=== PATIENT | male | born 1945 | race Caucasian/White ===

== ENCOUNTER 2016-09-08 18:11 | Emergency (ER) | payer MEDICARE ==
[2016-09-08 18:46] VITALS: BP 142/92
[2016-09-08] MEDS ORDERED: CYCLOBENZAPRINE HCL 10 MG TABLET PO ONE (19:52)
--- OUTSIDE RECORDS SUMMARY | 2016-09-08 19:53 | XMS REPORT | Summary of Care ---
:1945 Author Organization [facility] Address [address] [place] [address] Care Team Providers Name Role Phone Colette Medeiros Primary Care Physician Encounter Date(s): 08/04/16 - 08/04/16 [facility] Nini Mansfield, [address] [place], [place] [address] Discharge Diagnosis: Spinal stenosis Discharge Disposition: Discharged to Home or Self Care Attending Physician: Low Woods MD Referring Physician: Low Woods MD Vital Signs Most recent to oldest [Reference Range]: 1 Peripheral Pulse Rate [60-100 bpm] 85 bpm (08/04/16 10:39 AM) Blood Pressure [90-130/60-90 mmHg] 144/79mmHg *HI* (08/04/16 10:39 AM) Mean Arterial Pressure, Cuff 101 mmHg (08/04/16 10:39 AM) Most recent to oldest [Reference Range]: 1 Height/Length Measured 170 cm (08/04/16 10:39 AM) Weight Dosing 78.40 kg1 (08/04/16 10:39 AM) Weight Measured 78.4 kg (08/04/16 10:39 AM) BSA Measured 1.9 m2 (08/04/16 10:39 AM) Body Mass Index Measured 27.13 kg/m2 (08/04/16 10:39 AM) 1Result Comment: This result was because the dosing weight was either not entered or it is>30 days old. This result is based off: Weight Measured August 04, 2016 10:39:00 COUNTERINTELLIGENCE/HUMINT SPECIALIST by Abi Phelps CMA Problem List Condition Effective Dates Status Health Status Informant Diabetes(Confirmed) Active Heart attack(Confirmed) 1999 Active Allergies, Adverse Reactions, Alerts No Known Medication Allergies Medications aspirin 81 mg oral tablet 1 tab(s), Oral, BID, 0 Refill(s), Start Date: 06/27/16 14:50:00 COUNTERINTELLIGENCE/HUMINT SPECIALIST Start Date: 06/27/16 Status: Orderedatorvastatin 40 mg oral tablet 1 tab(s), Oral, Daily, 0 Refill(s), Start Date: 06/27/16 14:50:00 COUNTERINTELLIGENCE/HUMINT SPECIALIST Start Date: 06/27/16 Status: Orderedatorvastatin 40 mg oral tablet 1 tab(s), Oral, Daily, # 30 tab(s), 0 Refill(s), Start Date: 06/10/16 13:39:00 COUNTERINTELLIGENCE/HUMINT SPECIALIST Start Date: 06/10/16 Stop Date: 06/10/16 Status: Discontinuedgabapentin 600 mg oral tablet 2 tab(s), Oral, TID, # 270 tab(s), 0 Refill(s), Start Date: 06/27/16 14:50:00 COUNTERINTELLIGENCE/HUMINT SPECIALIST Start Date: 06/27/16 Status: Orderedgabapentin 600 mg oral tablet 1 tab(s), Oral, TID, # 270 tab(s), 0 Refill(s), Start Date: 06/10/16 13:39:00 COUNTERINTELLIGENCE/HUMINT SPECIALIST Start Date: 06/10/16 Stop Date: 06/10/16 Status: Discontinuedhydrocodone-acetaminophen 5mg-325mg oral tablet 1 tab(s), Oral, q6hr, PRN for pain, # 60 tab(s), 0 Refill(s), Start Date: 14:43:00 COUNTERINTELLIGENCE/HUMINT SPECIALIST, Pharmacy: [facility] Start Date: 07/25/16 Status: Orderedibuprofen 200 mg oral tablet 2 tab(s), Oral, q4hr, PRN for fever, # 120 tab(s), 0 Refill(s), Start Date: 13:39:00 COUNTERINTELLIGENCE/HUMINT SPECIALIST Start Date: 06/10/16 Stop Date: 06/10/16 Status: Discontinuedlisinopril 5 mg oral tablet 1 tab(s), Oral, Daily, 0 Refill(s), Start Date: 06/27/16 15:16:00 COUNTERINTELLIGENCE/HUMINT SPECIALIST Start Date: 06/27/16 Status: Orderedlisinopril 5 mg oral tablet 1 tab(s), Oral, Daily, # 30 tab(s), 0 Refill(s), Start Date: 06/10/16 13:39:00 COUNTERINTELLIGENCE/HUMINT SPECIALIST Start Date: 06/10/16 Stop Date: 06/10/16 Status: DiscontinuedmetFORMIN 500 mg oral tablet 1 tab(s), Oral, BID, 0 Refill(s), Start Date: 06/27/16 15:16:00 COUNTERINTELLIGENCE/HUMINT SPECIALIST Start Date: 06/27/16 Status: OrderedmetFORMIN 500 mg oral tablet 1 tab(s), Oral, BID, # 60 tab(s), 0 Refill(s), Start Date: 06/10/16 13:39:00 COUNTERINTELLIGENCE/HUMINT SPECIALIST Start Date: 06/10/16 Stop Date: 06/10/16 Status: Discontinuedmetoprolol tartrate 100 mg oral tablet 1 tab(s), Oral, Daily, 0 Refill(s), Start Date: 06/27/16 15:16:00 COUNTERINTELLIGENCE/HUMINT SPECIALIST Start Date: 06/27/16 Status: Orderedmetoprolol tartrate 100 mg oral tablet 1 tab(s), Oral, BID, # 180 tab(s), 0 Refill(s), Start Date: 06/10/16 13:40:00 COUNTERINTELLIGENCE/HUMINT SPECIALIST Start Date: 06/10/16 Stop Date: 06/10/16 Status: DiscontinuedSuprep Bowel Prep Kit oral liquid 1 kit, Oral, BID, First dose at 4 p.m. second dose at 8 p.m. the evening before your procedure., # 1 kit(s), 0 Refill(s), Start Date: 06/12/16 13:40:00 COUNTERINTELLIGENCE/HUMINT SPECIALIST, Pharmacy: [facility] Special Instructions: First dose at 4 p.m. second dose at 8 p.m. the evening before your procedure. Start Date: 06/12/16 Stop Date: 07/01/16 Status: Completed Results No data available for this section Immunizations No data available for this section Procedures Procedure Date Related Diagnosis Body Site Colonoscopy1 07/01/16 left hand surgery2 2011 Operation3 2011 CABG - Coronary artery bypass graft4 1999 amputation right arm5 1975 Arthroplasty of knee6 Colonoscopy7 1auto-populated from documented surgical [id number] left hand in car [id number] implant lower back42 [id number] to [id number] unsure of date of colonoscopy Social History No data available for this section Assessment and Plan No data available for this section
--- OUTSIDE RECORDS SUMMARY | 2016-09-08 19:53 | XMS REPORT | Summary of Care ---
:1945 Author Organization [facility] Address [address] [place] [address] Care Team Providers Name Role Phone Colette Medeiros Primary Care Physician Encounter Date(s): 08/13/16 - 08/13/16 [facility] Nini Mansfield, [address] [facility] [place], [place] [address] Discharge Diagnosis: Right leg pain Discharge Diagnosis: Spinal stenosis Discharge Diagnosis: Lumbosacral spine instability Discharge Disposition: 01 Discharged to Home or Self Care Attending Physician: Low Woods MD Referring Physician: Low Woods MD Vital Signs Most recent to oldest [Reference Range]: 1 Peripheral Pulse Rate [60-100 bpm] 78 bpm (08/13/16 9:48 AM) Blood Pressure [90-130/60-90 mmHg] 146/90mmHg *HI* (08/13/16 9:48 AM) Mean Arterial Pressure, Cuff 109 mmHg (08/13/16 9:48 AM) Most recent to oldest [Reference Range]: 1 Height/Length Measured 170 cm (08/13/16 9:48 AM) Weight Dosing 78.40 kg1 (08/13/16 9:49 AM) Weight Measured 78.4 kg (08/13/16 9:48 AM) BSA Measured 1.9 m2 (08/13/16 9:48 AM) Body Mass Index Measured 27.13 kg/m2 (08/13/16 9:48 AM) 1Result Comment: This result was because the dosing weight was either not entered or it is>30 days old. This result is based off: Weight Measured August 13, 2016 09:48:00 CORPORATE CLAIMS EXAMINER by Christina Saleh CMA Problem List Condition Effective Dates Status Health Status Informant Diabetes(Confirmed) Active Heart attack(Confirmed) 2000 Active Allergies, Adverse Reactions, Alerts No Known Medication Allergies Medications aspirin 81 mg oral tablet 1 tab(s), Oral, BID, 0 Refill(s), Start Date: 06/27/16 14:50:00 CORPORATE CLAIMS EXAMINER Start Date: 06/27/16 Status: Orderedatorvastatin 40 mg oral tablet 1 tab(s), Oral, Daily, 0 Refill(s), Start Date: 06/27/16 14:50:00 CORPORATE CLAIMS EXAMINER Start Date: 06/27/16 Status: Orderedatorvastatin 40 mg oral tablet 1 tab(s), Oral, Daily, # 30 tab(s), 0 Refill(s), Start Date: 06/10/16 13:39:00 CORPORATE CLAIMS EXAMINER Start Date: 06/10/16 Stop Date: 06/10/16 Status: Discontinuedgabapentin 600 mg oral tablet 2 tab(s), Oral, TID, # 270 tab(s), 0 Refill(s), Start Date: 06/27/16 14:50:00 CORPORATE CLAIMS EXAMINER Start Date: 06/27/16 Status: Orderedgabapentin 600 mg oral tablet 1 tab(s), Oral, TID, # 270 tab(s), 0 Refill(s), Start Date: 06/10/16 13:39:00 CORPORATE CLAIMS EXAMINER Start Date: 06/10/16 Stop Date: 06/10/16 Status: Discontinuedhydrocodone-acetaminophen 5mg-325mg oral tablet 1 tab(s), Oral, q6hr, PRN for pain, # 60 tab(s), 0 Refill(s), Start Date: 14:43:00 CORPORATE CLAIMS EXAMINER, Pharmacy: [facility] Start Date: 07/25/16 Status: Orderedibuprofen 200 mg oral tablet 2 tab(s), Oral, q4hr, PRN for fever, # 120 tab(s), 0 Refill(s), Start Date: 13:39:00 CORPORATE CLAIMS EXAMINER Start Date: 06/10/16 Stop Date: 06/10/16 Status: Discontinuedlisinopril 5 mg oral tablet 1 tab(s), Oral, Daily, 0 Refill(s), Start Date: 06/27/16 15:16:00 CORPORATE CLAIMS EXAMINER Start Date: 06/27/16 Status: Orderedlisinopril 5 mg oral tablet 1 tab(s), Oral, Daily, # 30 tab(s), 0 Refill(s), Start Date: 06/10/16 13:39:00 CORPORATE CLAIMS EXAMINER Start Date: 06/10/16 Stop Date: 06/10/16 Status: DiscontinuedmetFORMIN 500 mg oral tablet 1 tab(s), Oral, BID, 0 Refill(s), Start Date: 06/27/16 15:16:00 CORPORATE CLAIMS EXAMINER Start Date: 06/27/16 Status: OrderedmetFORMIN 500 mg oral tablet 1 tab(s), Oral, BID, # 60 tab(s), 0 Refill(s), Start Date: 06/10/16 13:39:00 CORPORATE CLAIMS EXAMINER Start Date: 06/10/16 Stop Date: 06/10/16 Status: Discontinuedmetoprolol tartrate 100 mg oral tablet 1 tab(s), Oral, Daily, 0 Refill(s), Start Date: 06/27/16 15:16:00 CORPORATE CLAIMS EXAMINER Start Date: 06/27/16 Status: Orderedmetoprolol tartrate 100 mg oral tablet 1 tab(s), Oral, BID, # 180 tab(s), 0 Refill(s), Start Date: 06/10/16 13:40:00 CORPORATE CLAIMS EXAMINER Start Date: 06/10/16 Stop Date: 06/10/16 Status: DiscontinuedSuprep Bowel Prep Kit oral liquid 1 kit, Oral, BID, First dose at 4 p.m. second dose at 8 p.m. the evening before your procedure., # 1 kit(s), 0 Refill(s), Start Date: 06/12/16 13:40:00 CORPORATE CLAIMS EXAMINER, Pharmacy: [id number] Special Instructions: First dose at 4 p.m. [...] of knee6 Colonoscopy7 1auto-populated from documented surgical [id number] left hand in car [id number] implant lower back42 [id number] to [id number] unsure of date of colonoscopy Social History No data available for this section Assessment and Plan No data available for this section
--- OUTSIDE RECORDS SUMMARY | 2016-09-08 19:53 | XMS REPORT | Summary of Care ---
:[address] [facility] Address [address] [place] [id number] Care Team Providers Name Role Phone Colette Medeiros Primary Care Physician Encounter Date(s): 08/12/16 - 08/12/[address] [address]- [facility] Discharge Disposition: 01 Discharged to Home or Self Care Attending Physician: Low Woods MD Admitting Physician: Low Woods MD Vital Signs Most recent to oldest [Reference Range]: 1 2 Temperature Temporal Artery [36.0-38.0 DegC] 36.8 DegC (08/12/16 9:35 AM) Heart Rate Monitored [60-100 bpm] 68 bpm 80 bpm (08/12/16 10:57 AM) (08/12/16 9:35 AM) Respiratory Rate [12-20 br/min] 20 br/min 20 br/min (08/12/16 10:57 AM) (08/12/16 9:35 AM) SpO2 [90-100 %] 100 % 100 % (08/12/16 10:57 AM) (08/12/16 9:35 AM) Blood Pressure [90-130/60-90 mmHg] 113/72mmHg 139/75mmHg (08/12/16 10:57 AM) *HI* (08/12/16 9:35 AM) Problem List Condition Effective Dates Status Health Status Informant Diabetes(Confirmed) Active Heart attack(Confirmed) 1999 Active Allergies, Adverse Reactions, Alerts No Known Medication Allergies Medications aspirin 81 mg oral tablet 1 tab(s), Oral, BID, 0 Refill(s), Start Date: 06/27/16 14:50:00 TAX REVENUE OFFICER Start Date: 06/27/16 Status: Orderedatorvastatin 40 mg oral tablet 1 tab(s), Oral, Daily, 0 Refill(s), Start Date: 06/27/16 14:50:00 TAX REVENUE OFFICER Start Date: 06/27/16 Status: Orderedatorvastatin 40 mg oral tablet 1 tab(s), Oral, Daily, # 30 tab(s), 0 Refill(s), Start Date: 06/10/16 13:39:00 TAX REVENUE OFFICER Start Date: 06/10/16 Stop Date: 06/10/16 Status: Discontinuedgabapentin 600 mg oral tablet 2 tab(s), Oral, TID, # 270 tab(s), 0 Refill(s), Start Date: 06/27/16 14:50:00 TAX REVENUE OFFICER Start Date: 06/27/16 Status: Orderedgabapentin 600 mg oral tablet 1 tab(s), Oral, TID, # 270 tab(s), 0 Refill(s), Start Date: 06/10/16 13:39:00 TAX REVENUE OFFICER Start Date: 06/10/16 Stop Date: 06/10/16 Status: Discontinuedhydrocodone-acetaminophen 5mg-325mg oral tablet 1 tab(s), Oral, q6hr, PRN for pain, # 60 tab(s), 0 Refill(s), Start Date: 14:43:00 TAX REVENUE OFFICER, Pharmacy: [facility] 1431 Start Date: 07/25/16 Status: Orderedibuprofen 200 mg oral tablet 2 tab(s), Oral, q4hr, PRN for fever, # 120 tab(s), 0 Refill(s), Start Date: 13:39:00 TAX REVENUE OFFICER Start Date: 06/10/16 Stop Date: 06/10/16 Status: Discontinuedlisinopril 5 mg oral tablet 1 tab(s), Oral, Daily, 0 Refill(s), Start Date: 06/27/16 15:16:00 TAX REVENUE OFFICER Start Date: 06/27/16 Status: Orderedlisinopril 5 mg oral tablet 1 tab(s), Oral, Daily, # 30 tab(s), 0 Refill(s), Start Date: 06/10/16 13:39:00 TAX REVENUE OFFICER Start Date: 06/10/16 Stop Date: 06/10/16 Status: DiscontinuedmetFORMIN 500 mg oral tablet 1 tab(s), Oral, BID, 0 Refill(s), Start Date: 06/27/16 15:16:00 TAX REVENUE OFFICER Start Date: 06/27/16 Status: OrderedmetFORMIN 500 mg oral tablet 1 tab(s), Oral, BID, # 60 tab(s), 0 Refill(s), Start Date: 06/10/16 13:39:00 TAX REVENUE OFFICER Start Date: 06/10/16 Stop Date: 06/10/16 Status: Discontinuedmetoprolol tartrate 100 mg oral tablet 1 tab(s), Oral, Daily, 0 Refill(s), Start Date: 06/27/16 15:16:00 TAX REVENUE OFFICER Start Date: 06/27/16 Status: Orderedmetoprolol tartrate 100 mg oral tablet 1 tab(s), Oral, BID, # 180 tab(s), 0 Refill(s), Start Date: 06/10/16 13:40:00 TAX REVENUE OFFICER Start Date: 06/10/16 Stop Date: 06/10/16 Status: DiscontinuedSuprep Bowel Prep Kit oral liquid 1 kit, Oral, BID, First dose at 4 p.m. second dose at 8 p.m. the evening before your procedure., # 1 kit(s), 0 Refill(s), Start Date: 06/12/16 13:40:00 TAX REVENUE OFFICER, [facility] Special Instructions: First dose at [...] of knee6 Colonoscopy7 1auto-populated from documented surgical [id number] left hand in car [id number] implant lower back42 [id number] to [id number] unsure of date of colonoscopy Social History No data available for this section Assessment and Plan No data available for this section
--- OUTSIDE RECORDS SUMMARY | 2016-09-08 19:53 | XMS REPORT | Continuity of Care Document ---
:1945 Author Organization [facility] ([facility]) Address [address] [place] [address] Phone [phone] Care Team Providers Name Role Phone Jay Jay Vázquez Primary Care Provider [phone] Source Comments This disclosure is being made pursuant to the Care Everywhere program, applicable federal and state laws, and may not contain all informaitonavailable regarding this patient.[facility] ([facility]) Active Allergies and Adverse Reactions Allergen Noted Date Severity Reactions Comments Duloxetine Unknown "When used with Lyrica and Ultram" Risperidone Analogues Angioedema Tongue swelling Current Medications Not on file Active Problems Problem Noted Date Pain in joint, forearm 06/02/2007 Pain in joint, hand 06/02/2007 Social History Tobacco Use Types Packs/Day Years Used Date Never Assessed Plan of Care Health Maintenance Due Date Last Done Comments HCV Screening 1945 Hepatitis B Vaccine (1 of 3 - Primary Series) 1945 Tdap Vaccine 09/08/1958 Lipid Disorder Screening 09/08/1965 Td Vaccine 09/08/1965 Colonoscopy 09/08/1997 Prostate Cancer Screening 09/08/1997 Zoster Vaccine 2007 Pneumococcal Vaccine (1 of 2 - PCV13) 09/08/2012 Influenza Vaccine: Seasonal (#1) 01/21/2016 Results from Last 3 Months Not on file
--- OUTSIDE RECORDS SUMMARY | 2016-09-08 19:53 | XMS REPORT | Continuity of Care Document ---
:1945 Author Organization [facility] [place] [address] Care Team Providers Name Role Phone Jay Jay Vázquez Primary Care Provider [phone] Source Comments This disclosure is being made pursuant to the [employer] program and maynot contain all information available regarding this patient.[facility] Active Allergies and Adverse Reactions No Known Allergies Current Medications Be aware that medications may not be up to date as of this document. Alwaysverify current medications with the patient. Prescription Sig. Disp. Refills Start Date End Date Status MULTIPLE VITAMIN PO Take 1 tablet Active by mouth daily. buPROPion (BUDEPRION XL) Take 300 mg by Active 300 MG 24 hr tablet mouth every morning. nitroGLYCERIN Place 0.4 mg Active (NITROSTAT) 0.4 MG SL under the tablet tongue every 5 (five) minutes as needed. metoprolol tartrate Take 25 mg by Active (LOPRESSOR) 25 MG tablet mouth 2 (two) times daily. pantoprazole (PROTONIX) Take 40 mg by Active 40 MG tablet mouth daily. pregabalin (LYRICA) 150 Take 150 mg by Active MG capsule mouth 3 (three) times daily. simvastatin (ZOCOR) 10 Take 10 mg by Active MG tablet mouth nightly. morphine (MS CONTIN) 15 Take 15 mg by Active MG 12 hr tablet mouth 2 (two) times daily. morphine (MS CONTIN) 30 Take 30 mg by Active MG 12 hr tablet mouth 2 (two) times daily. mometasone (ASMANEX) 220 Inhale 2 puffs Active MCG/INH inhaler into the lungs daily. DULoxetine (CYMBALTA) 60 Take 60 mg by Active MG capsule mouth daily. magnesium hydroxide Take 15-30 mLs Active (MILK OF MAGNESIA) 400 by mouth daily MG/5ML suspension as needed. rOPINIRole (REQUIP) 1 MG Take 2 mg by Active tablet mouth 2 (two) times daily. Pt takes 2mg in the AM and at noon, Also takes 3 mg at bedtime. rOPINIRole (REQUIP) 1 MG Take 3 mg by Active tablet mouth nightly. Pt also takes 2mg in the AM and at noon. HYDROcodone-acetaminophe Take 1-2 30 tablet 1 02/25/2012 Active n (NORCO) 7.5-325 MG per tablets by tablet mouth every 4 (four) hours as needed (unrelieved pain). enoxaparin (LOVENOX) 100 Inject 1 mL 10 Syringe 0 04/09/2012 Active MG/ML injection into the skin every 12 (twelve) hours. cyclobenzaprine Take 1 tablet 15 tablet 0 12/10/2012 Active (FLEXERIL) 10 MG tablet by mouth 3 (three) times daily as needed for Muscle spasms. Active Problems Problem Noted Date S/P right TKR (total knee replacement) 02/24/12 12/02/2012 Anemia associated with acute blood loss 12/02/2012 Altered sensorium 04/06/2012 Swelling of right lower extremity 04/06/2012 Dyspnea 04/06/2012 Hepatitis as a child Overview: as a child Hypertension Overview: Dr. North seen last fall Coronary artery disease Arthritis COPD (chronic obstructive pulmonary disease) ([facility]) Overview: follows with [facility] (myocardial infarction) ([facility]) Overview: 1999 GERD (gastroesophageal reflux disease) Depression Chronic pain syndrome Hyperlipidemia Immunizations Name Dates Previously Given Next Due Influenza Split 02/18/2011,06/28/2009,06/28/2009,04/27/2008 Td, preservative free 12/21/2003 Social History Tobacco Use Types Packs/Day Years Used Date Former Smoker Quit: 10/21/1999 Alcohol Use Drinks/Week oz/Week Comments Yes seldom Last Filed Vital Signs Vital Sign Reading Time Taken Blood Pressure 100/70 12/10/2012 3:14 PM CDT Pulse 75 12/10/2012 1:32 PM CDT Temperature 36.9 C (98.4 F) 12/10/2012 1:27 PM CDT Respiratory Rate 20 12/10/2012 1:27 PM CDT Height 1.702 m (5' 7") 12/10/2012 1:27 PM CDT Weight 99.791 kg (220 lb) 12/10/2012 1:27 PM CDT Body Mass Index 34.45 12/10/2012 1:27 PM CDT Oxygen Saturation 95% 12/10/2012 1:32 PM CDT Plan of Care Health Maintenance Due Date Last Done Comments Colonoscopy 09/08/1997 Well Adult Visit 09/08/1997 Tetanus/Pertussis (1 - Tdap) 12/22/2003 12/21/2003 Zoster Vaccine 60+ 2007 Pneumococcal Low/Medium Risk 65+ (1 09/08/2012 of 2 - PCV13) Influenza Immunization (#1) 2016 02/18/2011, 06/28/2009, 04/27/2008 Results from Last 3 Months Not on file
[2016-09-08] MEDS ORDERED: CYCLOBENZAPRINE HCL 10 MG TABLET ONE (19:58)
--- NOTE | 2016-09-08 20:02 | ERNOTE ---
Lower Extremity HPI - General Lower Extremities Pain: thigh: right - posterior right Time Seen by Provider: 09/08/16 19:30 Source: patient Exam Limitations: no limitations - Immun/Allergies/Home Medications Immunizations: IMMUNIZATION HX Immunizations Up to Date Yes History of Influenza Vaccine No Hx Pneumococcal Vaccination No Allergies/Adverse Reactions: Allergies Allergy/AdvReac Type Severity Reaction Status Date / Time No Known Allergies Allergy Verified 01/07/13 06:50 Home Medications: HOME MEDICATIONS Aspirin [Aspirin Enteric Coated] 81 mg PO DAILY 12/25/12 [Last Taken Unknown] Bupropion HCl [Wellbutrin Xl] 300 mg PO DAILY 12/25/12 [Last Taken Unknown] Pantoprazole Sodium [Protonix] 40 mg PO DAILY 12/25/12 [Last Taken Unknown] Hydrocodone/Acetaminophen [Hydrocodon-Acetaminophn 10-325] 1 each PO TID PRN 02/01 [Last Taken Unknown] Pregabalin [Lyrica] 150 mg PO TID 12/27/12 [Last Taken Unknown] Simvastatin [Zocor] 10 mg PO HS 12/27/12 [Last Taken Unknown] rOPINIRole HCL [Requip] 3 mg PO HS 12/27/12 [Last Taken Unknown] Acetaminophen [Tylenol] 650 mg PO Q6H PRN #0 tablet 12/28/12 [Last Taken Unknown ] DULoxetine HCL [Cymbalta] 60 mg PO BID #0 12/28/12 [Last Taken Unknown] HYDROcodone/ACETAMINOPHEN [[place] 5-325] 2 each PO TID PRN #0 tablet 12/28/12 [ Last Taken Unknown] Metoprolol Tartrate [Lopressor] 25 mg PO BID #0 tablet 12/28/12 [Last Taken Unknown] rOPINIRole HCL [Requip] 2 mg PO BID #0 12/28/12 [Last Taken Unknown] ARIPiprazole [Abilify] 2.5 mg PO Q24H #0 tablet 01/12/13 [Last Taken Unknown] Acyclovir [Zovirax] 800 mg PO TID #0 tablet 01/12/13 [Last Taken Unknown] Docusate Sodium [Colace] 100 mg PO DAILY #0 capsule 01/12/13 [Last Taken Unknown ] Cyclobenzaprine HCl [Flexeril] 10 mg PO TID PRN #30 tab 09/08/16 [Last Taken Unknown] Gabapentin 300 mg PO TID 09/08/16 [Last Taken Unknown] - History of Present Illness Narrative: Pt has had increasing pain of his right hamstring for a couple of months. he corrales tried stretching and "walking it off" but it continues to get worse. Occurred: other - onset months ago Method of Injury: Reports: no apparent injury Other Injuries: Reports: none Subsequent Symptoms: Denies: sensory loss, numbness, motor loss Review of Systems - Review of Systems Constitutional: Present: no symptoms reported EYE: Present: no symptoms reported ENT: Present: no symptoms reported Respiratory: Present: no symptoms reported Cardiology: Present: no symptoms reported Gastrointestinal/Abdominal: Present: no symptoms reported Genitourinary: Present: no symptoms reported Musculoskeletal: Present: See HPI, back pain - that is being treated by pain managment Skin: Present: no symptoms reported Neurological: Present: no symptoms reported Endocrine: Present: no symptoms reported Hematologic/Lymphatic: Present: no symptoms reported Psych: Present: no symptoms reported - Patient's Past Medical History Patient History - Medical: Arthritis, Diabetes Type 2, GERD Patient History - Cardiac/Respiratory: Hypertension, Hyperlipidemia Patient History - Cancer: No Hx of Cancer Patient History - Surgical Procedures: Amputation Patient History - Other: None - Social History Living Situations: home Abuse History: No History of abuse Psych History: Hx of Anxiety, Hx of Depression Smoking Status: Current some day smoker Have you smoked in the past 12 months: Yes Do you dip or chew tobacco: No Patient requests Smoking Cessation Consult: No Initiate information on Smoking Cessation: No Alcohol Use: occasionally Drug Use: none - Immunizations Immunizations Up to Date: Yes Hx Pneumococcal Vaccination: No History of Influenza Vaccine: No Physical Exam - Physical Exam General Appearance: Present: wd/wn, alert, no apparent distress Neck: Present: normal inspection, nontender Respiratory: Present: no respiratory distress Extremity Exam: Present: normal except - - right UE amputation with prosthesis in place. RLE: No edema, good range of motion with some discomfort in the hamstring on full extension of the knee. Palpation of the right hamstring finds muscle spasm in the mid hamstring unrelieved with stretching of the muscle Neurological Exam: Present: alert, oriented, normal mood/affect, no motor/ sensory deficits Skin Exam: Present: normal color, warm/dry ED Progress - Vital Signs Vital Signs: Vital Signs 09/08/16 18:38 Temperature 37.1 C Pulse Rate 87 Respiratory 18 Rate Blood Pressure 142/92 O2 Sat by Pulse 98 Oximetry - Progress/Reassessment Chief Complaint: Lower Extremity Pain/ Injury Departure Clinical Impression: Muscle spasm - Departure Disposition: Home Follow Up Needed Condition: Good Instructions: Muscle Cramps and Spasms, [id number], Heat Therapy Additional Instructions: See your regular doctor if not improving in 5-7 days. Referrals: Shade Cohen MD [Primary Care Provider] - Prescriptions: Cyclobenzaprine HCl [Flexeril] 10 mg PO TID PRN #30 tab PRN Reason: MUSCLE SPASMS
== END 2016-09-08 20:09 | disposition home or self-care (01) ==
LOC: ER 18:11
DX: M62.838 Other muscle spasm (principal); Z72.0 Tobacco use